=== PATIENT | male | born 1945 | race Caucasian/White ===

== ENCOUNTER 2017-10-02 13:01 | Inpatient (IN) ==
[2017-10-02] MEDS ORDERED: MAGNESIUM SULF RIDER 2 GM in PREMIX 1 EACH IV PRN (17:37)
[2017-10-02] MEDS ORDERED: DEXTROSE 50% 25 GM/50 ML VIAL IV PRN ×2 (17:37)
[2017-10-02] MEDS ORDERED: SODIUM CHLORIDE 0.9% 1,000 ML IV ONE (17:37)
[2017-10-02] MEDS ORDERED: SODIUM BICARB INJ 100 MEQ in STERILE WATER INJ 400 ML IV PRN (17:37)
[2017-10-02] MEDS ORDERED: MAGNESIUM SULF RIDER 4 GM in PREMIX 1 EACH IV PRN (17:37)
[2017-10-02] MEDS ORDERED: SODIUM CHLORIDE 0.9% IV PRN (17:37)
[2017-10-02] MEDS ORDERED: SODIUM PHOSPHATE IV PRN (17:37)
[2017-10-02] MEDS ORDERED: POTASSIUM CHLORIDE RIDER 10 MEQ in PREMIX 1 EACH IV PRN (17:37)
[2017-10-02] MEDS ORDERED: INSULIN REGULAR DRIP 100 ML IV SCH (18:00)
[2017-10-02] MEDS ORDERED: METOPROLOL TARTRATE 5 MG/5 ML VIAL IV ONE ×2 (18:04→18:16)
[2017-10-02] MEDS ORDERED: ALBUTEROL/IPRATROPIUM 3 ML NEB RESP TX ONE (18:12)
[2017-10-02 18:19] LABS: ABG Base Excess -8.6 MMOL/L (-2.5-2.5); ABG HCO3 25.5 MMOL/L (20-26); ABG Oxygen Saturation 97.8 % (95-100); ABG PO2 127.5 MM HG (80-95); ABG TCO2 28.4 MMOL/L (23-27)
[2017-10-02 18:21] LABS: ABG PH 7.048 (7.35-7.45)
[2017-10-02 18:22] LABS: ABG PCO2 94.6 MM HG (35-48)
[2017-10-02] MEDS ORDERED: LORazepam 2 MG/1 ML VIAL IV PRN (18:28)
[2017-10-02] MEDS ORDERED: METOPROLOL TARTRATE 5 MG/5 ML VIAL IV PRN (18:29)
[2017-10-02] MEDS ORDERED: LEVOFLOXACIN INJ 750 MG in PREMIX 1 EACH IV SCH (18:30)
[2017-10-02] MEDS ORDERED: SODIUM CHLORIDE 0.9% 1,000 ML IV SCH ×2 (18:37→22:37)
[2017-10-02 18:41] LABS: Basophils % 0.6 % (0.0-0.8); Hematocrit 37.5 VOL% (42.0-52.0); Immature Granulocytes % 3.7 %; Immature Granulocytes Absolute 0.06 #; Lymphocytes # 0.2 10*3/uL (1.4-4.0); Lymphocytes % 11.8 % (21.2-54.2); Mean Corpuscular Hemoglobin 30 PG (27-34); Mean Corpuscular Volume 92.6 FL (87-102); Mean Platelet Volume 9.7 FL (9.6-12.0); Monocytes # 0.1 10*3/uL (0.11-0.8); Monocytes % 7.5 % (1.7-12.7); Neutrophils # 1.2 10*3/uL (1.4-7.4); Neutrophils % 76.4 % (38.7-73.9); Platelet Count 134 T/CUMM (130-400); Red Blood Count 4.05 MC/CUMM (3.8-5.5); Red Cell Distribution Width 13.6 % (9.3-17.3); White Blood Count 1.6 T/CUMM (4-12)
[2017-10-02 18:49] LABS: Apearance,Urine CLOUDY (Clear); Bacteria,Urine Occasional /HPF (Few); Bilirubin,Urine Negative (Negative); Blood, Urine Large mg/dL (Negative); Glucose,Urine (UA) >=500 mg/dL (Negative); Ketones,Urine 5 mg/dL (Negative); Mucus,Urine Occasional /LPF (Occasional); Nitrite,Urine Negative (Negative); Protein,Urine >=500 MG/DL; RBC,Urine 66 /HPF (0-4); Squamous Epithelial Cell,Urine Occasional /HPF (0-10); Urine Color Yellow (Yellow); Urine Specific Gravity 1.012 (1.001-1.035); Urine Urobilinogen < 2.0 EU/DL (0.2-1.0); WBC,Urine 2 /HPF (0-6)
[2017-10-02 19:01] LABS: Calcium 7.1 MG/DL (8.5-10.1); Potassium 3.1 MMOL/L (3.5-5.1)
[2017-10-02 19:02] LABS: Calcium 6.8 MG/DL (8.5-10.1); Magnesium 2.6 MG/DL (1.8-2.4); Osmolality,Calculated 286.8 MOS/KG (273-304); Potassium 3.2 MMOL/L (3.5-5.1)
[2017-10-02] MEDS: ALBUTEROL/IPRATROPIUM 3 ML NEB RESP TX SCH (19:39)
[2017-10-02] MEDS ORDERED: POTASSIUM CHLORIDE INJ 40 MEQ in SODIUM CHLORIDE 0.9% 500 ML IV ONE (20:00)
[2017-10-02 20:09] LABS: Allen Test Positive; Pt O2 Delivery Device Simple Mask
[2017-10-02 20:10] LABS: ABG Base Excess -11.1 MMOL/L (-2.5-2.5); ABG HCO3 15.7 MMOL/L (20-26); ABG Oxygen Saturation 95.2 % (95-100); ABG PO2 93.9 MM HG (80-95); ABG TCO2 24.5 MMOL/L (23-27)
[2017-10-02 20:14] LABS: ABG PH 6.963 (7.35-7.45)
[2017-10-02] MEDS ORDERED: CALCIUM GLUCONATE 2,000 MG in SODIUM CHLORIDE 0.9% 100 ML IV ONE (20:21)
[2017-10-02] MEDS ORDERED: POTASSIUM CHLORIDE 20 MEQ TABLET PO ONE (20:21)
[2017-10-02] MEDS ORDERED: FUROSEMIDE 40 MG/4 ML VIAL IV ONE (20:22)
[2017-10-02 21:00] LABS: Band Neutrophils 18 % (0-10); Lymphocytes 42 % (20-55); Metamyelocytes 4 %; Myelocytes 1 %; Platelet Estimate Decreased; Polychromasia Few; Promyelocytes 1 %; Segmented Neutrophils 28 % (50-85); Total Cells Counted 100
[2017-10-02] MEDS ORDERED: PIPERACILLIN/TAZOBACTAM 3,375 MG in SODIUM CHLORIDE 0.9% 100 ML IV SCH (21:00)
[2017-10-02] MEDS: MORPHINE 10 MG/1 ML VIAL IV PRN (21:39)
[2017-10-02 21:48] LABS: Basophilic Stippling Few
[2017-10-03] MEDS ORDERED: INSULIN REGULAR 100 UNIT/ML SUBCUT SCH
[2017-10-03] MEDS: MORPHINE 10 MG/1 ML VIAL IV PRN ×7 (01:07→22:30)
[2017-10-03] MEDS: ALBUTEROL/IPRATROPIUM 3 ML NEB RESP TX SCH ×4 (01:43→19:48)
[2017-10-03] MEDS ORDERED: SODIUM CHLORIDE 0.45% 1,000 ML IV SCH (10:37)
[2017-10-03] MEDS ORDERED: DEXTROSE 50% 25 GM/50 ML VIAL IV PRN (11:15)
[2017-10-03] MEDS ORDERED: GLUCAGON 1 MG VIAL IM PRN (11:15)
[2017-10-03] MEDS ORDERED: ENOXAPARIN 40 MG/0.4 ML SYRINGE SUBCUT SCH (11:30)
[2017-10-03] MEDS: SODIUM CHLORIDE 0.9% 1,000 ML IV SCH ×2 (13:02→23:40)
[2017-10-03] MEDS: cefTRIAXone 1,000 MG in SYRINGE 1 EACH IV SCH (13:02)
[2017-10-03] MEDS ORDERED: ACETAMINOPHEN 500 MG TABLET PO PRN (20:37)
[2017-10-03] MEDS: ACETAMINOPHEN 650 MG SUPP RECTAL PRN (22:10)
[2017-10-04] MEDS: ACETAMINOPHEN 650 MG SUPP RECTAL PRN ×3 (01:35→13:23)
[2017-10-04] MEDS: ALBUTEROL/IPRATROPIUM 3 ML NEB RESP TX SCH ×3 (03:00→14:56)
[2017-10-04] MEDS: SODIUM CHLORIDE 0.9% 1,000 ML IV SCH (06:31)
[2017-10-04 06:45] LABS: Basophils # 0.1 10*3/uL (0.0-0.2); Hematocrit 32.7 VOL% (42.0-52.0); Hemoglobin 10.4 GM/DL (14.0-18.0); Immature Granulocytes % 14.3 %; Immature Granulocytes Absolute 0.68 #; Lymphocytes # 0.5 10*3/uL (1.4-4.0); Lymphocytes % 9.9 % (21.2-54.2); Mean Corpuscular HGB Conc 31.8 GM/DL (32-36); Mean Corpuscular Hemoglobin 30 PG (27-34); Mean Platelet Volume 10.2 FL (9.6-12.0); Monocytes # 0.1 10*3/uL (0.11-0.8); Monocytes % 2.3 % (1.7-12.7); NRBC # 0.03 10*3/uL; Neutrophils # 3.5 10*3/uL (1.4-7.4); Neutrophils % 72.5 % (38.7-73.9); Platelet Count 130 T/CUMM (130-400); Red Blood Count 3.48 MC/CUMM (3.8-5.5); Red Cell Distribution Width 14.6 % (9.3-17.3); White Blood Count 4.8 T/CUMM (4-12)
[2017-10-04 07:28] LABS: Albumin 1.7 G/DL (3.4-5.0); Osmolality,Calculated 314.1 MOS/KG (273-304); Potassium 4.7 MMOL/L (3.5-5.1); Total Protein 5.1 G/DL (6.4-8.3)
[2017-10-04 07:46] LABS: Band Neutrophils 16 % (0-10); Lymphocytes 11 % (20-55); Metamyelocytes 1 %; Myelocytes 4 %; Nucleated Red Blood Cells 1 (0-5); Segmented Neutrophils 67 % (50-85); Total Cells Counted 100
[2017-10-04 07:47] LABS: Giant Platelets Few; Ovalocytes Slight; Platelet Estimate Normal
[2017-10-04] MEDS ORDERED: DEXTROSE 50% 25 GM/50 ML VIAL IV PRN (09:51)
[2017-10-04] MEDS ORDERED: GLUCAGON 1 MG VIAL IM PRN (09:51)
[2017-10-04] MEDS ORDERED: SODIUM CHLORIDE 0.9% 1,000 ML IV SCH (10:00)
[2017-10-04] MEDS ORDERED: ENOXAPARIN 30 MG/0.3 ML SYRINGE SUBCUT SCH (11:30)
[2017-10-04] MEDS: cefTRIAXone 1,000 MG in SYRINGE 1 EACH IV SCH (11:53)
[2017-10-04 17:21] VITALS: BP 58/30
== END 2017-10-04 18:50 | disposition expired | DRG 871 ==
LOC: N.ICU 17:20 → N.3E 10-03 16:53